=== PATIENT | female | born 1970 | race Caucasian/White ===

== ENCOUNTER 2024-03-26 21:32 | Observation (INO) | payer BC ==
[2024-03-26] MEDS ORDERED: EPINEPHrine 1 MG/ML VIAL ONE (21:59)
[2024-03-26] MEDS ORDERED: methylPREDNISolone Sod Succ/PF 125 MG/2 ML VIAL ONE (21:59)
[2024-03-26] MEDS ORDERED: diphenhydrAMINE 50 MG/ML VIAL ONE (21:59)
[2024-03-26] MEDS ORDERED: Famotidine/PF 20 mg/2ml Vial ONE (22:00)
[2024-03-26 22:31] LABS: #Basophils Less than 0.03 10x3/uL (0.0-0.2); %Basophils 0.1 % (0.0-1.0); %Eosinophils 0.7 % (0.0-10.0); %Lymphocytes 32.1 % (21.0-51.0); %Monocytes 3.4 % (0.0-10.0); %Neutrophils 63.2 % (42.0-75.0); Hematocrit 35.1 % (36.0-47.0); Hemoglobin 12.5 g/dL (12.0-16.0); Mean Corpuscular HGB CONC 35.6 g/dL (32.0-36.0); Mean Corpuscular Volume 87.1 fL (78.0-98.0); Mean Platelet Volume 10.4 fL (7.4-10.4); Platelet Count 201 10x3/uL (130-400); RBC Distribution Width 12.2 % (11.5-14.5); Red Blood Cell (RBC) Count 4.03 mill/uL (4.20-5.40)
[2024-03-26 22:44] LABS: BHCG - Serum Negative (NEGATIVE); Pregs Control Background? CLEAR/WHITE (CLR/WHITE); Pregs Control Bar Appear? YES (CONTROL BAR)
[2024-03-26] MEDS ORDERED: Prochlorperazine 10 MG/2 ML VIAL ONE (22:44)
[2024-03-26 22:48] LABS: Acetaminophen Less than 10 mcg/mL (Less than 10); Alcohol Less than 10.0 mg/dL (Less than 10); Lipase 33 U/L (8-78); Magnesium 1.8 mg/dL (1.6-2.6); Salicylate Less than 8.0 mg/dL (Less than 8.0)
[2024-03-26 22:54] LABS: ALT (SGPT) 28 U/L (8-55); AST (SGOT) 22 U/L (5-34); Albumin 3.3 g/dL (3.5-5.0); Alkaline Phosphatase 56 U/L (40-110); Anion Gap 14 mmol/L (10-20); BUN (Urea Nitrogen) 21 mg/dL (9.8-20.1); Bilirubin, Total 0.4 mg/dL (0.2-1.2); Calc. Creatinine Clearance 0 mL/min (70-130); Calcium 8.3 mg/dL (7.8-10.44); Carbon Dioxide 22 mmol/L (22-29); Chloride 110 mmol/L (98-107); Estimated GFR 72; Globulin 2.5 g/dL (2.4-3.5); Glucose 152 mg/dL (70-105); Potassium 2.6 mmol/L (3.5-5.1); Protein, Total 5.8 g/dL (6.0-8.3); Sodium 143 mmol/L (136-145); Troponin I Less than 0.010 ng/mL (< 0.028)
[2024-03-26] MEDS ORDERED: NS 0.9% w/ 20 MEQ KCL 1,000 ML ONE (23:17)
[2024-03-27] MEDS ORDERED: EPINEPHrine 1 MG/ML AMP IM PRN (00:22)
[2024-03-27] MEDS ORDERED: diphenhydrAMINE 50 MG/ML VIAL IVP PRN (00:24)
[2024-03-27] MEDS ORDERED: Magnesium 2 GM/50 ML(in water) 2 GM in Premix 1 BAG IVPB SCH (00:30)
[2024-03-27] MEDS ORDERED: Ondansetron ODT 4 MG TAB PO PRN (00:58)
[2024-03-27] MEDS ORDERED: Ondansetron PF 4 MG/2 ML Vial IVP PRN (00:58)
[2024-03-27] MEDS ORDERED: Magnesium 2 GM/50 ML BAG (IN WATER) ONE (01:19)
[2024-03-27] MEDS ORDERED: NS 0.9% w/ 20 MEQ KCL 1,000 ML ONE (01:20)
[2024-03-27] MEDS: Potassium Chloride 20 MEQ TAB PO SCH ×2 (02:54→15:29)
[2024-03-27 02:55] VITALS: BMI 28.5
[2024-03-27 04:41] LABS: Anion Gap 12 mmol/L (10-20); BUN (Urea Nitrogen) 14 mg/dL (9.8-20.1); Calc. Creatinine Clearance 97 mL/min (70-130); Carbon Dioxide 21 mmol/L (22-29); Chloride 113 mmol/L (98-107); Estimated GFR 92; Glucose 168 mg/dL (70-105); Potassium 3.1 mmol/L (3.5-5.1); Sodium 143 mmol/L (136-145)
[2024-03-27] MEDS ORDERED: Metoclopramide HCl 10 MG (2 mL) VIAL IVP PRN (05:00)
[2024-03-27] MEDS: Lactated Ringer's 1,000 ML IV SCH (05:37)
[2024-03-27] MEDS: Acetaminophen 325 MG TAB PO PRN (10:07)
[2024-03-27 11:41] VITALS: BP 122/68; TEMP 97.9
== END 2024-03-27 15:35 | disposition home or self-care (01) ==
LOC: ERS 21:32 → OBS 03-27 00:58
PROVIDERS: ADMIT Internal Medicine; ATTEND Internal Medicine
DX: T78.02XA Anaphylactic reaction due to shellfish (crustaceans), initial encounter (principal); R55 Syncope and collapse; E87.6 Hypokalemia; R94.31 Abnormal electrocardiogram [ECG] [EKG]; R29.700 NIHSS score 0; I10 Essential (primary) hypertension; Z91.013 Allergy to seafood; Z90.49 Acquired absence of other specified parts of digestive tract; Z90.89 Acquired absence of other organs; Z94.9 Transplanted organ and tissue status, unspecified; Z98.890 Other specified postprocedural states; Z90.710 Acquired absence of both cervix and uterus; Z96.49 Presence of other endocrine implants; Z96.659 Presence of unspecified artificial knee joint; Z98.51 Tubal ligation status
CPT/HCPCS: 36415; 70450; 72125; 80048; 80053; 80307; 83690; 83735; 84443; 84484; 84703; 85025; 93005; 96361; 96365; 96366; 96367; 96368; 96372; 96375; G0378; J0171; J0780; J1200; J2919; J3475; J3480; J3490